=== PATIENT | female | born 1955 | race Caucasian/White ===

== ENCOUNTER 2018-04-05 09:22 | Emergency (ER) | payer OTHER ==
[~2018-04-05] VITALS: Ht 157.5 cm; Wt 193.1 kg
[~2018-04-05 09:22] MED LIST: BENICAR HCT 201 EACH PO; BENICAR20 MG PO; CETIRIZINE HCL10 M2 PO; COUMADIN1 MG PO; CYANOCOBAL1000 MCG/2 IM; DOCUSATE SODIU100 MG PO; DRISDOL50000 UNIT PO; ENALAPRIL MALEA20 MG PR; FUROSEMIDE20 MG PO; FUROSEMIDE40 MG PO; LEVOTHROID75 MCG PO; NAPROXEN500 MG PO; PERCOCET 5/31 TABLET PO; SERTRALINE HCL100 MG PO; SERTRALINE HCL50 MG PO; SIMVASTATIN20 MG PO; SYNTHROID75 MCG PO; THERAGRAN1 TABLET PO; TYLENOL EXTRA500 MG PO
[2018-04-05 10:02] LABS: BASOPHIL (%) 0.4 % (0-1); BASOPHIL COUNT 0.1 K/uL (0-0.1); EOSINOPHIL (%) 0.1 % (0-5); HEMATOCRIT 37.5 % (36.0-46.0); HEMOGLOBIN 12.3 G/DL (11.9-15.5); IMMATURE GRANULOCYTE (%) 0.5 % (0.0-0.7); LYMPHOCYTE (%) 8.3 % (15-42); MCH 29.1 PG (29.0-34.0); MCHC 32.8 G/DL (30.0-36.0); MCV 88.9 FL (83-99); MONOCYTE (%) 3.9 % (3-12); MONOCYTE COUNT 0.5 K/uL (0-0.8); NEUTROPHIL (%) 86.8 % (45-76); NEUTROPHIL COUNT 10.8 K/uL (1.8-6.4); PLATELET COUNT 246 K/uL (156-360); RBC DIS.WIDTH-SD 42.1 % (39-53); RED BLOOD COUNT 4.22 M/uL (3.80-5.20); WHITE BLOOD COUNT 12.4 K/uL (4.1-10.2)
[2018-04-05 10:33] LABS: INTER. NORMALIZED RATIO 1.2
[2018-04-05 10:51] LABS: ALKALINE PHOSPHATASE 53 IU/L (3-129); ALT (GPT) 11 IU/L (3-49); AST (GOT) 13 IU/L (2-34); CHLORIDE 105 MEQ/L (99-109); GFR ESTIMATE (CALCULATED) > 59 mL/min/; GLUCOSE 128 mg/dL (70-99); LIPASE 15 U/L (1.0-51.0); POTASSIUM 4.8 MEQ/L (3.7-5.4); SODIUM 140 MEQ/L (136-147); TOTAL BILIRUBIN 0.4 MG/DL (0.0-1.0); UREA NITROGEN (BUN) 16 mg/dL (9-23)
[2018-04-05 11:35] LABS: APPEARANCE CLOUDY ((CLEAR)); BILIRUBIN NEGATIVE; BLOOD NEGATIVE; COLOR YELLOW ((YELLOW)); GLUCOSE (STRIP) NEGATIVE; KETONES NEGATIVE; LEUKOCYTES NEGATIVE; NITRITE NEGATIVE; PROTEIN (STRIP) 30; SPECIFIC GRAVITY 1.023 (1.000-1.030); UROBILINOGEN 0.2 MG/DL (0.2-1.0)
[2018-04-05 11:43] LABS: BACTERIA RARE /HPF; EPITHELIAL CELLS 3+ /HPF; MUCUS TRACE /LPF; RED BLOOD CELLS 0-5 /HPF (0-5); WHITE BLOOD CELLS 0-5 /HPF (0-5)
[2018-04-05] MEDS ORDERED: CIPRO500 MG PO (12:40)
[2018-04-05] MEDS ORDERED: FLOMAX0.4 MG PO (12:40)
[2018-04-05] MEDS ORDERED: PERCOCET 5/31 TABLET PO (12:40)
[2018-04-05 12:45] VITALS: BP 143/62
== END 2018-04-05 13:43 | disposition home or self-care (01) ==
LOC: EME 09:22
PROVIDERS: Emergency Medicine
DX: N13.2 Hydronephrosis with renal and ureteral calculous obstruction (principal); K44.9 Diaphragmatic hernia without obstruction or gangrene; R11.2 Nausea with vomiting, unspecified; I10 Essential (primary) hypertension; E03.9 Hypothyroidism, unspecified; E78.5 Hyperlipidemia, unspecified
CPT/HCPCS: 74177; 80053; 81003; 83690; 85025; 85610; 87086; 99281; 99285; J2405; J3010; J7030